=== PATIENT | female | born 1975 | race Caucasian/White ===

== ENCOUNTER 2024-09-29 17:00 | Outpatient (CLI) | payer MEDICAID, SELFPAY ==
[2024-09-29 23:11] LABS: Chlamydia DNA Amplified* NOT DETECTED (No Detected); GC DNA Amplified* NOT DETECTED (No Detected)
[2024-10-07 18:44] LABS: HPV Source Cervix; HPV, High Risk by TMA Not Detected
== END 2024-09-29 17:01 | disposition home or self-care (01) ==
PROVIDERS: PCP Physician Assistant Medical; Visit Provider Physician Assistant Medical
DX: R10.9 Unspecified abdominal pain (principal); Z11.3 Encounter for screening for infections with a predominantly sexual mode of transmission; Z12.4 Encounter for screening for malignant neoplasm of cervix; Z11.51 Encounter for screening for human papillomavirus (HPV)
CPT/HCPCS: 87491; 87591; 87624; 87625; 88141; 88142

== ENCOUNTER 2024-10-05 07:50 | Outpatient (CLI) | payer MEDICAID, SELFPAY | END 2024-10-05 07:51 | disposition home or self-care (01) | LOC: NFLDREF 10-09 01:36 | PROVIDERS: PCP Physician Assistant Medical; Referring Provider Physician Assistant Medical; Visit Provider Physician Assistant Medical | DX: R03.0 Elevated blood-pressure reading, without diagnosis of hypertension (principal); Z13.220 Encounter for screening for lipoid disorders; Z13.29 Encounter for screening for other suspected endocrine disorder; Z11.59 Encounter for screening for other viral diseases | CPT/HCPCS: 80053; 80061; 84443; 86803 ==

== ENCOUNTER 2024-10-08 16:07 | Outpatient (CLI) | payer MEDICAID, SELFPAY | END 2024-10-08 16:08 | disposition home or self-care (01) | LOC: CT 16:08 | PROVIDERS: PCP Physician Assistant Medical; Visit Provider Physician Assistant Medical | DX: R10.9 Unspecified abdominal pain (principal); K57.30 Diverticulosis of large intestine without perforation or abscess without bleeding | CPT/HCPCS: 74177; Q9967 ==

== ENCOUNTER 2025-03-26 20:45 | Emergency (ER) | payer MEDICAID, SELFPAY ==
[2025-03-26] VITALS (8 sets, daily range): BP systolic 149–165; BP diastolic 75–100; PULSE 69–83; RESP 16–18; TEMP 36.7; O2SAT 98–100; BMI 29.4
--- OUTSIDE RECORDS SUMMARY | 2025-03-26 20:46 | XMS_ITS | Clinical Summary ---
Author Organization [facility] Address [address] [place] [address] Care Team Providers Care Head Bucker Name Role Phone Pierre Lebron MD Primary Care Provider [phone] Source Comments You are receiving this document as you are listed as the primary care provider,follow-up provider, or the patient has been referred to you for consultation.This is in compliance with the Medicare and[facility] E[facility] Incentive Program,which states Providers who transition their patient to another setting of careor provider of care or refers their patient to another provider of care shouldprovide summary care record for each transition of care or referral. [facility] Allergies No known active allergies Medications Multiple Vitamins-Minera ls (MULTIVITAMIN ADULT OR) Take 1 tablet by mouth daily (every 24 hours). 2 Active fluticasone (AKA FLONASE) 50 MCG/ACT nasal solutionIndicat ions:Nasal congestion Place 2 sprays into each nostril daily (every 24 hours). Dose is for each nostril. 16 g 0 3 Active triamcinolone acetonide (AKA KENALOG) 0.1 % cream Apply topically 3 times daily as needed for Itching for up to 7 days. 80 g 0 5 Active amoxicillin-cla vulanate (AUGMENTIN) 875-125 mg per tablet Take 1 Tablet by mouth two times a day. 1 Active norethindrone-e th estradiol (AKA NORINYL, ORTHO NOVUM) 1-35 MG-MCG tablet Take 1 tablet by mouth daily (every 24 hours). LW Addl Instr:Follow package directions. 84 4 0 04/16/20 12 Discontinu ed(Reorder ) Active Problems Problem Noted Date Diagnosed Date Breast lump on left side at 12 o'clock position 10/06/2015 Abnormal Pap smear of cervix 03/14/2008 Immunizations Immunization Administration Dates Next Due Flu Vac Preserv Free (3+yrs) 04/16/2012,07/12/20,05/10/2009 H1n1 Miv Sanofi 3+ Yr (Injected) 07/31/2009 HepB Adult (Engerix-B, 20+ y rs, 3 dose series) 06/10/2017,03/14/2008,09/08/2006 Influenza IIV4 (Quadrivalent) 0.5mL (78734) 05/25,06/14/2015,05/31/2014 Influenza, Unspecified Formulation 07/12/2010, TDAP (BOOSTRIX) 04/16/2012 Tdap 09/08/2006 Family History Medical History Relation Name Comments Heart Disease Father Cancer, Breast Mother 40 yo, metast atic, thought to start in breast Depression Mother Cancer, Colon Maternal Grandmother mid 50 s Cancer, Other Other maternal aunt with ? type, young age Depression Sister 1 Depression Sister 2 Cancer Negative Family History Cancer, Endometrial Negative Family History Cancer, Ovary Negative Family History Diethylstilbestrol Exposure Negative Family History Relation Name Status Comments Father Alive Mother (Age 40) Brother Alive Maternal Grandfather Maternal Grandmother Other Paternal Grandfather Paternal Grandmother Sister 1 Alive Sister 2 Alive Social History Tobacco Use Types Packs/Day Years Used Date Smoking Tobacco: Former Cigarettes 0 02/04/1993 - 02/04/2009 Smokeless Tobacco: Never Comments:Quit smoking: Alcohol Use Standard Drinks/Week Comments Yes 2 (1 standard drink = 0.6 oz pur e alcohol) 1-2 x week PHQ-2 Answer Date Recorded PHQ-2 Score 0 07/26/2021 Comments No Sex and Gender Information Value Date Recorded Sex Assigned at Not on file Legal Sex Female 4:24 AM CDT Gender Identity Not on file Sexual Orientation Not on file 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 Not on file Not on file Not on file Last Filed Vital Signs Vital Sign Reading Time Taken Comments Blood Pressure 131/71 02/01/2021 1:09 PM CDT Pulse 80 02/01/2021 1:09 PM CDT Temperature 38.3 C (100.9 F) 07/26/2021 1:[address] [place] Respiratory Rate 16 06/11/2014 2:27 PM CDT Oxygen Saturation 99% 10/13/2012 12:[address] [place] Inhaled Oxygen Concentration - - Weight 90.7 kg (200 lb) 07/26/2021 1:[address] [place] Height 168.9 cm (5' 6.5) 02/01/2021 1:09 PM CDT Body Mass Index 31.8 02/01/2021 1:09 PM CDT Plan of Treatment Health Maintenance Due Date Last Done Comments Colon Cancer Screening Plan Due 1975 Adult Preventive Visit 03/14/2009 03/14/2008, 2006 DTaP/Tdap/Td Vaccine (3 - Tdap) 04/16/2022 04/16/2012, 09/08/2006 COVID-19 Vaccine (1 - season) 2024 Pneumococcal Vaccine 50+ Yrs (1 of 1 - PCV) 2025 Zoster/Shingles Vaccine (1 of 2) 2025 Influenza Vaccine (#1) 2025 7, 06/14/2015, 05/31/2014, Additional history exists Mammogram 09/17/2025 09/17/2024, 10/0 01/2023, 04/15/2022, Additional history exists Cervical Cancer Screening 02/01/20262020, 02/01/2021, 10/25/2015, Additional history exists Cholesterol 02/01/2026 02/01/2021, 04/16/2012 HIV Screening (Preventive Services) Completed 12/27/2013, 04/16/2012, 07/12/2010, Additional history exists Hep C Screening (Preventive Services) Completed 12/27/2013, 04/16/2012 HepB Vaccine Completed 06/10/2017, 07/2 08/2007, 09/08/2006 HepA Vaccine Aged Out No longer eligi ble based on patient's age to complete this topic Hib Vaccine Aged Out No longer eligi ble based on patient's age to complete this topic IPV (Polio) Vaccine Aged Out No longe r eligible based on patient's age to complete this topic MCV4 Vaccine Aged Out No longer eligi ble based on patient's age to complete this topic Meningococcal B Vaccine Aged Out No l onger eligible based on patient's age to complete this topic Procedures Procedure Name Priority Date/Time Associated Diagnosis Comments MM MAMMOGRAM SCREENING BILAT W CAD Routine 09/17/2024 7:[address] [place] Visit for screening mammogram CYTOLOGY (PAP) Routine 02/01/2021 1:57 PM CDT Cervical cancer screening LIPID PANEL & DIRECT LDL (IF NEEDED) Routine 02/01/2021 1:45 PM CDT Preventative health care HIV ANTIBODY Routine 12/27/2013 12:48 PM CDT Screen for STD (sexually transmitted disease) HEPATITIS C ANTIBODY, WITH REFLEX (ANTI-HCV) Routine 12/27/2013 12:48 PM CDT Screen for STD (sexually transmitted disease) from Last 3 Months or Most Recently Relevant to Health Maintenance Results * MM Mammogram Screening Bilat W CAD (09/17/2024 7:[address] [place]) Anatomical Region Laterality Modality Breast Bilateral Mammography Impressions 09/17/2024 8:[address] [place] : ACR BI-RADS Category 1: Negative RECOMMENDATION: Follow Up Imaging in 12 months - Bilateral The results and recommendations of this examination will be communicated to the patient. Narrative 09/17/2024 8:[address] [place] MM MAMMOGRAM SCREENING BILAT W CAD performed on 09/17/24 FDA Accredited Facility: [place] [id number] Compared to: 05/30/2023 MM Mammogram Screening Bilat W CAD, 04/15/2022 [facility] Mammogram Diag Bilat W 3D Zach, 04/15/2022 [facility] US Breast Rt, 04/11/2022 MM Mammogram Screening Bilat W CAD, and 02/06/2021 MM Mammogram Screening Bilat W CAD FINDINGS: Bilateral screening mammogram was performed with the assistance of Computer-Aided Detection . There are scattered areas of fibroglandular density. There is no radiographic evidence of malignancy. Cecilia Kumar MD RAD NATHALIA Final Result * PAP Test (02/01/2021 1:57 PM CDT) Case Report Pap Case: [id number] Authorizing Provider: Cecilia Kumar MD Collected: 02/01/2021 6238 Ordering Location: [facility] Received: 02/01/2021 1415 Services-WASHROOM OPERATOR First Screen: Carmita Hummel Rescreen: Kathryn Hollins, CT (ASCP) Specimen: Pap Test, Routine, Cervix/Endocervix 02/09/2021 1:22 PM CDT [facility] Pap Specimen Adequacy Satisfactory for evaluation, endocervical/hammer sformation zone component present. 02/09/2021 1:22 PM CDT [facility] Pap Interpretation Negative for intraepithelial lesion or malignancy (NILM). 02/09/2021 1:22 PM CDT [facility] at 1322 CDT Pap Disclaimer The Pap test is a screening test designed to aid in the detection of cervical cancer and its precursor lesions. It is not a diagnostic procedure and should not be used as the sole means of detecting cervical cancer. Both false-positive and false-negative results may occur. 02/09/2021 1:22 PM CDT [facility] Gross Description The specimen is received in SurePath fixative and properly labeled. 1 Pap-stained SurePath slide is prepared. 02/09/2021 1:22 PM CDT [facility] Embedded Images 1:22 PM CDT [facility] Other Specimen Type ENTIRE ENDOCERVIX / Unknown 02/01/2021 1:57 PM CDT 02/01/2021 2:15 PM CDT Comment:LMP: No LMP recorded . (Menstrual status: Continuous hormonal contraception). Cecilia Kumar MD LAB PATHOLOGY Final Result [facility] [address], [place] [address] * (ABNORMAL) Lipid Panel - LDLD if Trig Hi [CHOLF] (02/01/2021 1:45 PM CDT) Cholesterol 164 0 - 199 mg/dL 02/01/2021 5:08 PM CDT [facility] Triglyceride 157(H) <=149 mg/dL 02/01/2021 5:08 PM CDT [facility] HDL Cholesterol 47 >=40 mg/dL 5:08 PM CDT [facility] LDL, Calculated 86 <130 mg/dL 5:08 PM CDT [facility] Non HDL Chol, Calculated 117 <=159 mg/dL 02/01/2021 5:08 PM CDT [facility] Cholesterol/HDL Ratio 3.5 02/01/2021 5:08 PM CDT [facility] Hours Fasting 2 02/01/2021 5:08 PM CDT [facility] Blood Venipuncture / Unknown 02/01/2021 1:45 PM CDT 02/01/2021 1:45 PM CDT us Cecilia Kumar MD LAB_1 Final Result [facility] [address] [place] [address], [facility] [phone] [facility] [address] [place] [address], [facility] [phone] * HIV ANTIBODY (12/27/2013 12:48 PM CDT) HIV 1/HIV 2 Non-React Non-Reacti ve HP CONVERSION 12/27/2013 12:4 8 PM CDT 12/27/2013 3:21 PM CDT us Janny Gibson RN LAB_1 Final Result [facility] CONVERSION * Hepatitis C Antibody, with Reflex (12/27/2013 12:48 PM CDT) Hepatitis C Antibody Non-React Non-Reacti ve HP CONVERSION 12/27/2013 12:4 8 PM CDT 12/27/2013 3:21 PM CDT Janny Gibson RN LAB_1 Final Result HP CONVERSION from Last 3 Months or Most Recently Relevant to Health Maintenance Insurance [facility] Care Teams Head Bucker Relationship Specialty Start Date End Date Pierre Lebron MD [address] [facility] [address] [place] [address] PCP - General 11/25/10
--- OUTSIDE RECORDS SUMMARY | 2025-03-26 20:46 | XMS_ITS | Clinical Summary ---
Author Organization Reading Address [facility] [place] [address] Care Team Providers Care Workforce Development Program Director Name Role Phone [facility], [facility] ov[facility] Allergies No known active allergies Medications oxyCODONE (ROXICODONE) 5 MG immediate release tablet Take 1-2 tablets (5-10 mg) by mouth every 6 hours as needed for pain 12 tablet 0 09/06/2013 Active Social History Tobacco Use Types Packs/Day Years Used Date Smoking Tobacco: Former Cigarettes Comments:Quit 3 years ago Alcohol Use Standard Drinks/Week Comments Yes 0 (1 standard drink = 0.6 oz pur e alcohol) socially Adolescent Education Answer Date Record ed Getting School Help Needed Not on file 06/01 Comments No Sex and Gender Information Value Date Recorded Sex Assigned at Not on file Legal Sex Female 3:18 AM TRAINING INSTRUCTOR Gender Identity Not on file Sexual Orientation Not on file Last Filed Vital Signs Vital Sign Reading Time Taken Comments Blood Pressure 124/93 07/26/2021 9:19 PM TRAINING INSTRUCTOR Pulse 88 07/26/2021 9:19 PM TRAINING INSTRUCTOR Temperature 37 C (98.6 F) 07/26/2021 5:59 PM TRAINING INSTRUCTOR Respiratory Rate 18 07/26/2021 5:59 PM TRAINING INSTRUCTOR Oxygen Saturation 97% 07/26/2021 9:19 PM TRAINING INSTRUCTOR Inhaled Oxygen Concentration - - Weight 90.7 kg (200 lb) 07/26/2021 5:59 PM TRAINING INSTRUCTOR Height 170.2 cm (5' 7) 07/24/2012 3:28 PM TRAINING INSTRUCTOR s tated Body Mass Index 31.32 07/24/2012 3:28 PM TRAINING INSTRUCTOR Plan of Treatment Health Maintenance Due Date Last Done Comments ADVANCE CARE PLANNING 1975 ANNUAL REVIEW OF HM ORDERS [address] CT COLONOGRAPHY 1975 DIABETES SCREENING 1975 FIT 1975 FLEX SIG 1975 sDNA (Cologuard) 1975 COLONOSCOPY 1985 COLORECTAL CANCER SCREENING 1985 HIV SCREENING 1990 YEARLY PREVENTIVE VISIT 03/14/2009 03/14/2008, 09/08 LIPID 2015 DTAP/TDAP/TD VACCINE (3 - Td or Tdap) 04/16/2022 04/16/2012, 09/08/2006 PAP 02/02/2024 02/01/2021 COVID-19 VACCINE (1 - 2023- season) 2024 PHQ-2 (once per calendar year) 2024 PNEUMOCOCCAL VACCINE 50+ YEARS (1 of 1 - PCV) 2025 ZOSTER VACCINE (1 of 2) 2025 INFLUENZA VACCINE (#1) 2025 7, 06/14/2015, 05/31/2014, Additional history exists MAMMO SCREENING 09/17/2026 09/17/2024, 03/26, 10/16/2015 HEPATITIS C SCREENING Completed 12/27/2013 HEPATITIS B VACCINE Completed 06/10/2017, 03/14/2008, 09/08/2006 HPV VACCINE (No Doses Required) Completed MENINGITIS VACCINE Aged Out No longer eligible based on patient's age to complete this topic Care Teams Workforce Development Program Director Relationship Specialty Start Date End Date [facility], [facility] [id number] [place] [id number] PCP - General 01/21/23
[2025-03-26 20:54] LABS: Appearance Urine Clear (Clear)
--- NOTE | 2025-03-26 21:05 | ED_ITS ---
HPI - General Adult General Chief complaint: Abdominal Pain Stated complaint: Sharp Lower abdominal and back pain Time Seen by Provider: 03/26/25 20:53 History of Present Illness HPI narrative: RLQ abd/R flank pain started this AM. denies urinary concerns or hx of kidney stones. 50-year-old woman presenting to the emergency department with concern of right lower abdominal pain. This morning began to have and pain in her back and then it has progressed to the right lower abdomen than across the low abdomen. See notes that she is having some difficulty raising her right leg; it appears because of pain. No fever. No hematuria. No dysuria or frequency urgency. Does have a daughter with kidney stones. Initial discomfort in the low right abdomen and then to her back that she thought might indicate beginning of her period. Apparently is still fairly regular. No history ovarian cyst. No trauma. Related Data Home Medications ?Medication ?Instructions ?Recorded ?Confirmed famotidine 20 mg tablet (Pepcid) 20 mg PO BID PRN 10/2303/26/25 Previous Rx's ?Medication ?Instructions ?Recorded phentermine 37.5 mg tablet 18.75 mg (1/2 x 37.5 mg) PO QDAY 03/23/25 #45 tabs propranolol 60 mg capsule,24 60 mg PO QDAY #90 caps hr,extended release Allergies Allergy/AdvReac Type Severity Reaction Status Date / Time No Known Drug Allergies Allergy Verified 12/20/24 14:07 Review of Systems Status of ROS: Reports: 6 or more systems reviewed and unremarkable except as noted in History and below [facility] Medical History Encounter for Essure implantation ?Z30.2 - Encounter for sterilization (ICD-10) History of vaginal delivery History of ?Z87.59 - Personal history of other complications of , childbirth and the puerperium (ICD-10) History of miscarriage ?Z87.59 - Personal history of other complications of , childbirth and the puerperium (ICD-10) Family History Maternal Grandmother Colon cancer Mother Breast cancer, Onset Age: 40 Social History Narrative: Engaged ( king). ( 3 kids- 30, 28, 15) Former smoker- Quit smoking 08/2024 ( on and off) Alcohol: few+ drink per week. Not drinking since 08/25/2024 Employed: [employer] at [employer]- high school diploma What is your current living situation?: I presently have a place to live Problems where you live: no known problems In the past 12 months, utilities in danger of being shut off: no In past 12 months, lack of transportation kept you from medical appts, meetings, work, or getting things needed for daily living: no Smoking Status: Current some day smoker What tobacco products do you use: cigarettes Second hand tobacco smoke exposure: Yes How often do you have a drink containing alcohol: never AUDIT-C Alcohol total score: 0 Non-prescribed substance use: denies use How often does anyone, including family, friends and others, physically hurt you : never How often does anyone, including family, friends and others, insult or talk down to you: never How often does anyone, including family, friends and others, threaten you with harm: never How often does anyone, including family, friends and others, scream or curse at you: never Exam Narrative: Exam Narrative: Pleasant. Seems little uncomfortable. Skin is warm and dry. Parks. A few tattoos. Breathing easily. Lungs appear to be clear. Heart in regular rate and rhythm without murmur rub or gallop. Abdomen is soft without peritoneal signs. No masses. She is moderately tender to palpation the right lower quadrant and suprapubic and about the right SI joint somewhat as well; indicates also the upper right buttock. Negative Harriet's. Straight leg raise on the right causes more discomfort. Const: Vital Signs, click to edit/add: Vital Signs - 24 hr 03/26/25 20:53 03/26/25 21:46 03/26/25 21:47 Temperature 98.1 F 98.1 F Pulse Rate 69 Pulse Rate [Pulse Oximeter] 83 Respiratory Rate 16 18 Blood Pressure 151/81 H Blood Pressure [Ri ght Upper Arm] 165/100 H Pulse Oximetry 99 100 Oxygen Delivery Me thod Room Air 03/26/25 22:02 03/26/25 22:32 03/26/25 22:50 Temperature 98.0 F 98.0 F Pulse Rate 72 73 Pulse Rate [Pulse Oximeter] 75 Respiratory Rate 18 18 18 Blood Pressure 149/75 H 155/86 H Blood Pressure [Ri ght Upper Arm] 155/86 H Pulse Oximetry 99 98 98 Oxygen Delivery Me thod Room Air 03/26/25 22:50 03/26/25 22:52 03/26/25 23:00 Temperature 98.0 F 98.0 F Pulse Rate Pulse Rate [Pulse Oximeter] 75 Respiratory Rate 18 Blood Pressure Blood Pressure [Ri ght Upper Arm] 155/86 H Pulse Oximetry 98 Oxygen Delivery Me thod Documenting provider has reviewed patient's vital signs: yes Course Vital Signs Vital signs: Initial Vital Signs Temperature 98.1 F 03/26/25 20:53 Temperature Source Temporal Artery Scan 03/26/25 20:53 Pulse Rate 83 03/26/25 20:53 Respiratory Rate 16 03/26/25 20:53 Blood Pressure 165/100 H 03/26/25 20:53 Blood Pressure Mean 121 H 03/26/25 20:53 Blood Pressure Position Sitting 03/26/25 20:53 Pulse Oximetry 99 03/26/25 20:53 Oxygen Delivery Method Room Air 03/26/25 20:53 Vital Signs Temperature 98.1 F 03/26/25 20:53 Pulse Rate 83 03/26/25 20:53 Respiratory Rate 16 03/26/25 20:53 Blood Pressure 165/100 H 03/26/25 20:53 Pulse Oximetry 99 03/26/25 20:53 Oxygen Delivery Method Room Air 03/26/25 20:53 Temperature 98.0 F 03/26/25 23:00 Pulse Rate 75 03/26/25 23:00 Respiratory Rate 18 03/26/25 23:00 Blood Pressure 155/86 H 03/26/25 23:00 Pulse Oximetry 98 03/26/25 22:50 Oxygen Delivery Method Room Air 03/26/25 22:50 Medications Administered Medications: Discontinued Medications Generic Name Dose Route Start Last Admin Trade Name Freq PRN Reason Stop Dose Admin Sodium Chloride 1,000 mls @ 1,000 mls/hr 03/26/25 21:15 03/26/25 22:15 0.9 % Sodium Chloride 1000 Ml IV 03/26/25 22:14 Infused .Q1H ONE Infusion Ketorolac Tromethamine 30 mg 03/26/25 21:45 03/26/25 21:46 Ketorolac 30 Mg/Ml Inj IVP 03/26/25 21:46 30 mg ONCE ONE Administration Lidocaine 1 patch 03/26/25 22:57 03/26/25 22:58 Lidocaine 5% Patch TRANSDERMA 03/26/25 22:58 1 patch ONCE ONE Administration Protocol Medical Decision Making MDM Narrative Medical decision making narrative: At this point unlikely to have ovarian cyst since has never had this before. I would wonder about potential ureteral stone and colic. Appendicitis as well possible. Urinary tract infection though otherwise does not have UTI symptoms. SI joint pain could be contributing but I am not convinced this is the primary issue. Does not have ovarian torsion level pain. Discomfort does not appear to be where I might expect with gallbladder disease. Urine returns with 2+ blood. This could represent pending menses. No blood on microscopic. Does not actually look infected. IV was placed. Initiating normal saline. Will CT image looking for other in differential as noted above. Labs otherwise unremarkable. CT imaging pelvis my independent review I thought might be a 3 mm stone in the region of the right ureteral vesicular junction. Can not say that I can completely tract that to the ureter however. Radiology over-read notes normal imaging. Radiology over-read below Indication: RT LOWER QUAD PAIN, HEMATURIA Technique: CT abdomen/pelvis without IV contrast Comparison: CT abdomen/pelvis on October 08, 2024 Findings: Lower thorax: Unremarkable Abdomen/pelvis: The liver, gallbladder and biliary system, spleen, pancreas, adrenal glands, kidneys, ureters, and bladder are unremarkable. The uterus is unremarkable. Bilateral tubal occlusion devices. No suspicious adnexal lesions. Similar-appearing trace free fluid in the pelvis, likely physiologic. No evidence of bowel obstruction or inflammation. The appendix is normal. Few colonic diverticula without CT evidence of acute diverticulitis. No free air. No abscess. No abdominopelvic lymphadenopathy. The vasculature is unremarkable. Soft tissue/musculoskeletal: Diastasis recti with tiny fat containing umbilical hernia. No acute fracture or malalignment. Similar appearing degenerative disc disease at L5-S1. No suspicious osseous lesions. Impression: 1. No CT evidence of an acute process involving the abdomen or pelvis. 2. Incidental findings as detailed above. Please note that all CT scans at this facility use dose modulation, iterative reconstruction, and/or weight-based dosing when appropriate to reduce radiation dose to as low as reasonably achievable. Dictated by Kehinde Pro MD @ 03/26/2025 9:58:36 PM Is a little improved with the ibuprofen. Also placed lidocaine patch in the right SI joint. See patient discharge plan for further discussion Can take up to 800 mg of ibuprofen up to 1000 mg of acetaminophen per dose. Alternative to the ibuprofen might be up to 500 mg naproxen 2 times daily. As discussed though am prescribing ketorolac from [employer]. Would not take ketorolac or ibuprofen or naproxen at the same time dosing. Also from [employer], ?muscle relaxer? called Flexeril. If you think this lidocaine patch is helpful, can purchase more [id number]. See handout for exercises for sacroiliac joint pain. If this continues to be a problem might be helped by physical therapy as well. Return for marked increase in persistent pain/uncontrolled pain, repeated vomiting, fever. Medical Records Medical records reviewed: Yes I reviewed the patient's medical records Lab Data Lab results reviewed: Yes I reviewed the patient's lab results Labs: Lab Results 03/26/25 03/26/25 03/26/25 Range/Units 20:47 21:08 21:15 WBC 8.91 (4.50-11.00) K/uL RBC 4.02 (4.00-5.20) m/uL Hgb 12.6 (12.0-16.0) gm/dL Hct 37.6 (33.0-51.0) % MCV 94 (80-100) fL MCH 31 (26-34) pg MCHC 34 (32-36) gm/dL RDW Coeff of [place] 13.6 (11.5-15.5) % Plt Count 290 (140-440) K/uL Neut % (Auto) 60.7 (42.0-72.0) % Lymph % (Auto) 29.0 (20-44) % [place] % (Auto) 8.2 (0.0-11.0) % Eos % (Auto) 1.6 (0.0-7.0) % Baso % (Auto) 0.4 (0.0-3.0) % Neut # (Auto) 5.41 (1.7-7.0) K/uL Lymph # (Auto) 2.58 (0.90-2.90) K/uL [place] # (Auto) 0.70 (0.00-0.90) K/UL Eos # (Auto) 0.14 (0.00-0.50) K/uL Baso # (Auto) 0.04 (0.00-0.30) K/uL Abs Immat Gran (auto) 0.01 (0.00-0.30) K/uL Imm/Tot Granulo (auto) 0.1 % Sodium 136 (135-149) mmol/L Potassium 3.8 (3.6-5.1) mmol/L Chloride 103 (96-114) mmol/L Carbon Dioxide 25 (20-32) mmol/L Anion Gap 8 (7-15) mEq/L BUN 15 (7-30) mg/dL Creatinine 0.9 (0.5-1.5) mg/dL Estimated Creat Clear 72.72 Estimated GFR 78 ml/min Glucose 105 (60-115) mg/dL Calcium 9.1 (8.4-10.6) mg/dL Total Bilirubin 0.4 (0.1-1.5) mg/dL Direct Bilirubin 0.1 (0.0-0.5) mg/dL AST 71 H (12-35) U/L ALT 30 (4-35) U/L Alkaline Phosphatase 69 (40-150) U/L C-Reactive Protein 1.1 H (0.5-1.0) mg/dL Total Protein 7.5 (6.0-8.3) g/dL Albumin 4.5 (3.3-5.0) g/dL Urine Color Yellow (Yellow) Urine Appearance Clear (Clear) Urine pH 7.0 (5.0-8.5) Ur Specific [place] 1.015 (1.000-1.030) Urine Protein Negative (Negative) Urine Glucose (UA) Negative (Negative) Urine Ketones Negative (Negative) Urine Blood 2+ A (Negative) Urine Nitrite Negative (Negative) Urine Bilirubin Negative (Negative) Urine Urobilinogen 0.2 (0.2-1.0) Ur Leukocyte Esterase Negative (Negative) Urine RBC 0-2 (0-2) Urine WBC 0-2 (0-5) Ur Squamous Epith Cells None (None-Few) Urine Bacteria Few A (None) Urine HCG, Qual Negative (Negative) Lab Acknowledgement 03/26/25 Range/Units 22:14 WBC (4.50-11.00) K/uL RBC (4.00-5.20) m/uL Hgb (12.0-16.0) gm/dL Hct (33.0-51.0) % MCV (80-100) fL MCH (26-34) pg MCHC (32-36) gm/dL RDW Coeff of [place] (11.5-15.5) % Plt Count (140-440) K/uL Neut % (Auto) (42.0-72.0) % Lymph % (Auto) (20-44) % [place] % (Auto) (0.0-11.0) % Eos % (Auto) (0.0-7.0) % Baso % (Auto) (0.0-3.0) % Neut # (Auto) (1.7-7.0) K/uL Lymph # (Auto) (0.90-2.90) K/uL [place] # (Auto) (0.00-0.90) K/UL Eos # (Auto) (0.00-0.50) K/uL Baso # (Auto) (0.00-0.30) K/uL Abs Immat Gran (auto) (0.00-0.30) K/uL Imm/Tot Granulo (auto) % Sodium (135-149) mmol/L Potassium (3.6-5.1) mmol/L Chloride (96-114) mmol/L Carbon Dioxide (20-32) mmol/L Anion Gap (7-15) mEq/L BUN (7-30) mg/dL Creatinine (0.5-1.5) mg/dL Estimated Creat Clear Estimated GFR ml/min Glucose (60-115) mg/dL Calcium (8.4-10.6) mg/dL Total Bilirubin (0.1-1.5) mg/dL Direct Bilirubin (0.0-0.5) mg/dL AST (12-35) U/L ALT (4-35) U/L Alkaline Phosphatase (40-150) U/L C-Reactive Protein (0.5-1.0) mg/dL Total Protein (6.0-8.3) g/dL Albumin (3.3-5.0) g/dL Urine Color (Yellow) Urine Appearance (Clear) Urine pH (5.0-8.5) Ur Specific [place] (1.000-1.030) Urine Protein (Negative) Urine Glucose (UA) (Negative) Urine Ketones (Negative) Urine Blood (Negative) Urine Nitrite (Negative) Urine Bilirubin (Negative) Urine Urobilinogen (0.2-1.0) Ur Leukocyte Esterase (Negative) Urine RBC (0-2) Urine WBC (0-5) Ur Squamous Epith Cells (None-Few) Urine Bacteria (None) Urine HCG, Qual (Negative) Lab Acknowledgement Test Added Discharge Plan Discharge Clinical Impression: Pain of right sacroiliac joint, Right lower quadrant abdominal pain Patient Disposition: Home w/ Parent or Adult Condition: Improved Additional Instructions: Can take up to 800 mg of ibuprofen up to 1000 mg of acetaminophen per dose. Alternative to the ibuprofen might be up to 500 mg naproxen 2 times daily. As discussed though am prescribing ketorolac from [employer]. Would not take ketorolac or ibuprofen or naproxen at the same time dosing. Also from [facility], ?muscle relaxer? called Flexeril. If you think this lidocaine patch is helpful, can purchase more [id number]. See handout for exercises for sacroiliac joint pain. If this continues to be a problem might be helped by physical therapy as well. Return for marked increase in persistent pain/uncontrolled pain, repeated vomiting, fever. Prescriptions: No Action famotidine [Pepcid] 20 mg tablet 20 mg PO BID PRN propranolol 60 mg capsule,extended release 24 hr 60 mg PO QDAY Qty: 90 0RF Rx Instructions: once daily phentermine 37.5 mg tablet 18.75 mg PO QDAY Qty: 45 1RF Rx Instructions: 1/2 tablet daily for weight management administer 30 minutes before or 1-2 hours after breakfast Follow Up/Referrals: Viki Gary PA-C [Primary Care Provider, Family Practice] Stand Alone Forms: [facility] Info Instructions
[2025-03-26 21:12] LABS: Ur HCG Qualitative* Negative (Negative)
--- NOTE | 2025-03-26 21:15 | CRLHL7_ITS ---
For Patients: As a result of the Cures Act, medical imaging exams and procedure reports are released immediately into your electronic medical record. You may view this report before your referring provider. If you have questions, please contact your health care provider. Indication: RT LOWER QUAD PAIN, HEMATURIA Technique: CT abdomen/pelvis without IV contrast Comparison: CT abdomen/pelvis on October 08, 2024 Findings: Lower thorax: Unremarkable Abdomen/pelvis: The liver, gallbladder and biliary system, spleen, pancreas, adrenal glands, kidneys, ureters, and bladder are unremarkable. The uterus is unremarkable. Bilateral tubal occlusion devices. No suspicious adnexal lesions. Similar-appearing trace free fluid in the pelvis, likely physiologic. No evidence of bowel obstruction or inflammation. The appendix is normal. Few colonic diverticula without CT evidence of acute diverticulitis. No free air. No abscess. No abdominopelvic lymphadenopathy. The vasculature is unremarkable. Soft tissue/musculoskeletal: Diastasis recti with tiny fat containing umbilical hernia. No acute fracture or malalignment. Similar appearing degenerative disc disease at L5-S1. No suspicious osseous lesions. Impression: 1. No CT evidence of an acute process involving the abdomen or pelvis. 2. Incidental findings as detailed above. Please note that all CT scans at this facility use dose modulation, iterative reconstruction, and/or weight-based dosing when appropriate to reduce radiation dose to as low as reasonably achievable. Dictated by Kehinde rPo MD @ 03/26/2025 9:58:36 PM (Electronically Signed)
[2025-03-26 21:40] LABS: Hematocrit 37.6 % (33.0-51.0); Hemoglobin* 12.6 gm/dL (12.0-16.0); Immature Granulocytes Abs Auto 0.01 K/uL (0.00-0.30); Immature Granulocytes Pct Auto 0.1 %; Lymphocytes Absolute Auto 2.58 K/uL (0.90-2.90); Mean Corpuscular HGB Conc 34 gm/dL (32-36); Mean Corpuscular Hemoglobin 31 pg (26-34); Mean Corpuscular Volume 94 fL (80-100); RDW Coefficient of Variation % 13.6 % (11.5-15.5); Red Blood Count 4.02 m/uL (4.00-5.20); White Blood Count* 8.91 K/uL (4.50-11.00)
[2025-03-26 21:44] LABS: Slide Review Reflex No
[2025-03-26 21:51] LABS: Chloride* 103 mmol/L (96-114); Potassium* 3.8 mmol/L (3.6-5.1); Sodium* 136 mmol/L (135-149)
[2025-03-26 21:55] LABS: Anion Gap 8 mEq/L (7-15); Blood Urea Nitrogen* 15 mg/dL (7-30); Calcium* 9.1 mg/dL (8.4-10.6); Carbon Dioxide* 25 mmol/L (20-32); Creatinine* 0.9 mg/dL (0.5-1.5); Est. Creatinine Clearance* 72.72; Estimated Glomerular Filt Rate 78 ml/min; Glucose* 105 mg/dL (60-115)
[2025-03-26 22:23] LABS: Albumin* 4.5 g/dL (3.3-5.0)
[2025-03-26 22:26] LABS: Alanine Aminotransferase* 30 U/L (4-35); Alkaline Phosphatase* 69 U/L (40-150); Aspartate Amino Transferase* 71 U/L (12-35); Bilirubin Direct* 0.1 mg/dL (0.0-0.5); Bilirubin Total* 0.4 mg/dL (0.1-1.5); Total Protein* 7.5 g/dL (6.0-8.3)
[2025-03-26] MEDS: LIDOCAINE 5% PATCH 1 PATCH TRANSDERMA (22:58)
== END 2025-03-26 23:01 | disposition home or self-care (01) ==
PROVIDERS: Emergency Provider Family Medicine; PCP Physician Assistant Medical
DX: R10.31 Right lower quadrant pain (principal); M53.3 Sacrococcygeal disorders, not elsewhere classified
CPT/HCPCS: 36415; 74176; 80048; 80076; 81001; 81025; 85025; 86140; 87086; 94761; 96374; 96375; 99284; A9270; J1885; J7030